=== PATIENT | female | born 1965 | race Caucasian/White ===

== ENCOUNTER 2018-11-15 16:13 | Emergency (ER) | payer MEDICAID ==
[~2018-11-15] VITALS: Ht 160 cm; Wt 68.2 kg
[~2018-11-15 16:13] MED LIST: CHOLESTEROL; GLIP10 PO; MAGOX PO; METF-960 PO; [UNRECOGNIZED DRUG - CODE] MC
[2018-11-15 16:30] LABS: GLUCOSE,POINT OF CARE > 600 MG/DL (70-110)
[2018-11-15 16:52] LABS: BASOPHILS % (AUTO) 0.6 % (0.0-2.0); EOSINOPHILS % (AUTO) 3.3 % (1.0-6.0); LYMPHOCYTES # (AUTO) 2.6 K/uL (1.0-4.8); LYMPHOCYTES % (AUTO) 31.9 % (22.0-44.0); MEAN CORPUSCULAR HEMOGLOBIN 33.7 pg (26.0-34.0); MEAN CORPUSCULAR VOLUME 99 fL (80-100); MONOCYTES # (AUTO) 0.7 K/uL (0.1-1.0); MONOCYTES % (AUTO) 8.9 % (2.0-9.0); NEUTROPHILS # (AUTO) 4.5 K/uL (1.8-7.7); NEUTROPHILS % (AUTO) 55.3 % (40.0-70.0); PLATELET COUNT (AUTO) 125 K/uL (150-450); RED BLOOD CELL COUNT(AUTO) 4.44 MIL/uL (4.00-5.20); RED CELL DISTRIBUTION WIDTH 13.1 % (11.5-14.5)
[2018-11-15 17:14] LABS: ALANINE AMINOTRANSFERASE 27 U/L (12-78); ALBUMIN 4.1 g/dL (3.4-5.0); ALKALINE PHOSPHATASE 227 U/L (46-116); ANION GAP 10 mmol/L (8-16); ASPARTATE AMINOTRANSFERASE 18 U/L (15-37); BILIRUBIN,TOTAL 0.3 mg/dL (0.1-1.0); CALCIUM, TOTAL 9.6 mg/dL (8.8-10.5); CARBON DIOXIDE 25 mmol/L (22-29); CHLORIDE 98 mmol/L (98-107); CREATININE 0.79 mg/dL (0.60-1.30); GLOMERULAR FILTR. RATE CALC > 60 mL/min (>60); LIPASE 379 U/L (73-393); POTASSIUM 4.1 mmol/L (3.5-5.1); SODIUM SERUM 133 mmol/L (136-145); TOTAL PROTEIN, SERUM 7.1 g/dL (6.4-8.2); UREA NITROGEN, BLOOD 14 mg/dL (7-18)
[2018-11-15 17:18] LABS: GLUCOSE,RANDOM 575 mg/dL (70-110)
[2018-11-15 18:33] LABS: APPEARANCE,URINE CLEAR (CLEAR); BILIRUBIN,URINE NEGATIVE (NEGATIVE); GLUCOSE, URINE (UA) >=1000 mg/dL (NEGATIVE); KETONES,URINE 15 mg/dL (NEGATIVE); LEUKOCYTE ESTERASE ,URINE NEGATIVE (NEGATIVE); NITRATE,URINE NEGATIVE (NEGATIVE); OCCULT BLOOD,URINE NEGATIVE (NEGATIVE); PH,URINE 5.5 (5.0-8.0); PROTEIN,URINE NEGATIVE (NEGATIVE); UROBILINOGEN,URINE 0.2 mg/dL (<=1.0)
[2018-11-15 18:37] LABS: BACTERIA,URINE None Seen /HPF (None Seen); RBC,URINE None Seen /HPF (0-2); SQUAMOUS EPITHELIAL CELL,UR Few /LPF (None Seen); WBC,URINE 0-2 /HPF (0-5); YEAST,URINE Few /HPF (None Seen)
[2018-11-15] MEDS ORDERED: SODIUM CHLORIDE 0.9% 2,000 ML IV ONE (18:38)
[2018-11-15] MEDS ORDERED: INSULIN REGULAR, HUMAN 100 UNITS/ML IVP ONE (18:45)
[2018-11-15 20:25] LABS: GLUCOSE,POINT OF CARE 171 MG/DL (70-110)
[2018-11-15 21:50] LABS: ABG A-A DIFF O2 5.5 mmHg (10-20.0); ABG BASE EXCESS -2.8 mmol/L (-2.0-3.0); ABG CARBOXYHEMOGLOBIN 2.7 % (0.0-1.5); ABG HCO3 22.4 mmol/L (22.0-26.0); ABG METHEMOGLOBIN 0.3 % (0.0-1.5); ABG OXYGEN CONTENT 17.5 mL/dL (15.0-23.0); ABG OXYGEN SATURATION 96.8 % (95.0-98.0); ABG OXYHEMOGLOBIN 93.9 % (94.0-100.0); ABG PCO2 38 mmHg (35-45); ABG PH 7.385 (7.35-7.450); ABG TOTAL HEMOGLOBIN 13.2 G/dL (12.0-18.0); PO2, ARTERIAL BG 98.9 mmHg (84.0-92.0); SOURCE, BLOOD GAS ARTERIAL
[2018-11-15 22:00] LABS: GLUCOSE,POINT OF CARE 201 MG/DL (70-110)
[2018-11-15 22:41] LABS: SITE, BLOOD GAS LFT RADIAL
[2018-11-15 23:09] VITALS: BP 110/67
== END 2018-11-15 23:26 | disposition home or self-care (01) ==
LOC: EMS 16:14
DX: E11.65 Type 2 diabetes mellitus with hyperglycemia (principal); F17.210 Nicotine dependence, cigarettes, uncomplicated; Z91.14 Patient's other noncompliance with medication regimen; Z88.5 Allergy status to narcotic agent; Z79.84 Long term (current) use of oral hypoglycemic drugs
CPT/HCPCS: 36415; 80053; 81001; 82009; 82805; 82962; 83690; 83880; 84484; 85025; 96361; 96374; 99283; J1815; J7030

== ENCOUNTER 2020-11-07 18:47 | Emergency (ER) | payer MEDICAID ==
[~2020-11-07] VITALS: Ht 160 cm; Wt 63.6 kg
[~2020-11-07 18:47] MED LIST changes: -CHOLESTEROL; -MAGOX PO
[2020-11-07 18:56] VITALS: BP 106/64
[2020-11-07] MEDS ORDERED: IBUPROFEN 600 MG TABLET PO ONE (19:45)
[2020-11-07] MEDS ORDERED: ValACYclovir HCL 500 MG TABLET PO ONE (19:45)
== END 2020-11-07 20:37 | disposition home or self-care (01) ==
LOC: EMS 18:50
DX: B02.9 Zoster without complications (principal); E11.9 Type 2 diabetes mellitus without complications; F17.210 Nicotine dependence, cigarettes, uncomplicated; Z88.0 Allergy status to penicillin; Z79.84 Long term (current) use of oral hypoglycemic drugs

== ENCOUNTER 2021-06-30 14:03 | Emergency (ER) | payer MEDICAID ==
[~2021-06-30] VITALS: Ht 160 cm; Wt 72.7 kg
[2021-06-30 14:07] VITALS: BP 128/77
== END 2021-06-30 15:18 | disposition left against medical advice (07) ==
LOC: EMS 14:08
DX: T14.90XA Injury, unspecified, initial encounter (principal); Z53.21 Procedure and treatment not carried out due to patient leaving prior to being seen by health care provider; X58.XXXA Exposure to other specified factors, initial encounter

== ENCOUNTER 2021-06-30 18:56 | Emergency (ER) | payer MEDICAID ==
[~2021-06-30] VITALS: Ht 160 cm; Wt 70.5 kg
[2021-06-30] MEDS ORDERED: LIDOCAINE 1% 10 ML VIAL ONE (20:23)
[2021-06-30 20:45] VITALS: BP 117/68
== END 2021-06-30 21:00 | disposition home or self-care (01) ==
LOC: EMS 18:57
DX: L02.512 Cutaneous abscess of left hand (principal); Z88.5 Allergy status to narcotic agent; E11.9 Type 2 diabetes mellitus without complications; Z79.84 Long term (current) use of oral hypoglycemic drugs
CPT/HCPCS: 10060; 99283; J3490

== ENCOUNTER 2021-08-14 18:34 | Emergency (ER) | payer MEDICAID ==
[~2021-08-14] VITALS: Ht 160 cm; Wt 62.5 kg
[2021-08-14 18:41] VITALS: BP 123/75
[2021-08-14] MEDS ORDERED: ACETAMINOPHEN 500 MG TABLET PO ONE (20:00)
[2021-08-14] MEDS ORDERED: BACITRACIN 0.9 GM PACKET OINTMENT TP ONE (20:00)
[2021-08-14] MEDS ORDERED: LIDOCAINE 1% 10 ML VIAL SQ ONE (20:00)
[2021-08-14] MEDS ORDERED: DOXYCYCLINE HYCLATE 100 MG TABLET PO ONE (20:00)
== END 2021-08-14 21:22 | disposition home or self-care (01) ==
LOC: EMS 18:40
DX: L02.414 Cutaneous abscess of left upper limb (principal); M79.89 Other specified soft tissue disorders; E11.9 Type 2 diabetes mellitus without complications; F17.210 Nicotine dependence, cigarettes, uncomplicated; F12.90 Cannabis use, unspecified, uncomplicated; Z88.5 Allergy status to narcotic agent; Z79.84 Long term (current) use of oral hypoglycemic drugs
CPT/HCPCS: 10060; 99283; J3490; 99284

== ENCOUNTER 2021-09-10 20:10 | Emergency (ER) | payer MEDICAID ==
[~2021-09-10] VITALS: Ht 160 cm; Wt 59.1 kg
[~2021-09-10 20:10] MED LIST changes: +METF-1211 PO; -METF-960 PO
[2021-09-10 20:29] LABS: GLUCOSE,POINT OF CARE 196 MG/DL (70-110)
[2021-09-10 20:45] VITALS: BP 119/71
[2021-09-10] MEDS ORDERED: CEPHALEXIN MONOHYDRATE 500 MG CAPSULE PO ONE (21:30)
== END 2021-09-10 21:34 | disposition home or self-care (01) ==
LOC: EMS 20:53
DX: L03.114 Cellulitis of left upper limb (principal); E11.9 Type 2 diabetes mellitus without complications
CPT/HCPCS: 82962; 87070; 87077; 87186; 87205; 99283

== ENCOUNTER 2021-11-17 09:32 | Emergency (ER) | payer MEDICAID ==
[~2021-11-17] VITALS: Ht 160 cm; Wt 62.3 kg
[2021-11-17] MEDS ORDERED: POVIDONE-IODINE 10% 15 ML SOLUTION UD TP ONE (10:00)
[2021-11-17] MEDS ORDERED: HYDROCODONE/ACETAMINOPHEN 5-325 MG TABLET PO ONE (10:00)
[2021-11-17] MEDS ORDERED: BUPIVACAINE HCL/PF 0.25% 10 ML VIAL PERC ONE (10:00)
[2021-11-17 10:01] LABS: GLUCOSE,POINT OF CARE 199 MG/DL (70-110)
[2021-11-17 11:46] VITALS: BP 115/64
[2021-11-17] MEDS ORDERED: CEPH500C3 PO (12:38)
[2021-11-17] MEDS ORDERED: SULF-261 PO (12:38)
== END 2021-11-17 12:46 | disposition home or self-care (01) ==
LOC: EMS 09:34
DX: L03.111 Cellulitis of right axilla (principal); L03.116 Cellulitis of left lower limb; L03.313 Cellulitis of chest wall; E11.9 Type 2 diabetes mellitus without complications; F12.90 Cannabis use, unspecified, uncomplicated; F17.210 Nicotine dependence, cigarettes, uncomplicated; Z88.5 Allergy status to narcotic agent; Z79.84 Long term (current) use of oral hypoglycemic drugs
CPT/HCPCS: 82962; 99283; J3490

== ENCOUNTER 2022-01-12 10:30 | Emergency (ER) | payer MEDICAID ==
[~2022-01-12] VITALS: Ht 160 cm; Wt 59.1 kg
[~2022-01-12 10:30] MED LIST changes: +CEPH500C3 PO; +SULF-261 PO
[2022-01-12] MEDS ORDERED: LIDOCAINE/PF 1% 2 ML VIAL IM ONE (11:45)
[2022-01-12] MEDS ORDERED: CefTRIAXone SODIUM 1 GM/VIAL IM ONE (11:45)
[2022-01-12 13:12] VITALS: BP 145/66
[2022-01-12] MEDS ORDERED: SULF-261 PO (13:41)
[2022-01-12] MEDS ORDERED: CEPH500C3 PO (13:42)
== END 2022-01-12 14:18 | disposition home or self-care (01) ==
LOC: EMS 10:32
DX: L08.9 Local infection of the skin and subcutaneous tissue, unspecified (principal); L03.312 Cellulitis of back [any part except buttock and flank]; E11.9 Type 2 diabetes mellitus without complications; F17.210 Nicotine dependence, cigarettes, uncomplicated; F12.90 Cannabis use, unspecified, uncomplicated; Z88.5 Allergy status to narcotic agent; Z79.84 Long term (current) use of oral hypoglycemic drugs
CPT/HCPCS: 96372; 99283; J0696; J3490

== ENCOUNTER 2022-12-17 12:04 | Emergency (ER) | payer MEDICAID ==
[~2022-12-17] VITALS: Ht 160 cm; Wt 62.3 kg
[~2022-12-17 12:04] MED LIST changes: +CEPH-558 PO; -CEPH500C3 PO; -GLIP10 PO; +GLIP10TA10 PO
[2022-12-17 15:15] VITALS: BP 115/71
== END 2022-12-17 15:57 | disposition home or self-care (01) ==
LOC: EMS 12:09
DX: S20.219A Contusion of unspecified front wall of thorax, initial encounter (principal); F17.210 Nicotine dependence, cigarettes, uncomplicated; F12.90 Cannabis use, unspecified, uncomplicated; R73.03 Prediabetes; Z88.5 Allergy status to narcotic agent; V19.88XA Pedal cyclist (driver) (passenger) injured in other specified transport accidents, initial encounter; Y93.89 Activity, other specified; Y92.89 Other specified places as the place of occurrence of the external cause; Y99.8 Other external cause status
CPT/HCPCS: 71100; 71101; 99284; Z7502

== ENCOUNTER 2025-02-04 18:30 | Inpatient (IN) | payer MEDICAID ==
[~2025-02-04] VITALS: Ht 160 cm; Wt 56.0 kg
[~2025-02-04 18:30] MED LIST changes: -CEPH-558 PO; +DOXY-354 PO; -GLIP10TA10 PO; +INSU3INS3 SQ; -METF-1211 PO; +MIDO5TAB29 PO; -SULF-261 PO; -[UNRECOGNIZED DRUG - CODE] MC
[2025-02-04 19:11] LABS: APPEARANCE,URINE CLEAR (CLEAR); BILIRUBIN,URINE NEGATIVE (NEGATIVE); COLOR,URINE LIGHT YELLOW (YELLOW); GLUCOSE, URINE (UA) >=1000 mg/dL (NEGATIVE); KETONES,URINE NEGATIVE (NEGATIVE); LEUKOCYTE ESTERASE ,URINE SMALL (NEGATIVE); NITRATE,URINE NEGATIVE (NEGATIVE); OCCULT BLOOD,URINE SMALL (NEGATIVE); PROTEIN,URINE TRACE mg/dL (NEGATIVE); UROBILINOGEN,URINE <=1.0 mg/dL (<=1.0)
[2025-02-04 19:18] LABS: BASOPHILS % (AUTO) 0.1 % (0.0-2.0); EOSINOPHILS % (AUTO) 1.5 % (1.0-6.0); HEMATOCRIT 44.2 % (36-46); HEMOGLOBIN 14.8 g/dL (12.0-16.0); LYMPHOCYTES # (AUTO) 1.8 K/uL (1.0-4.8); LYMPHOCYTES % (AUTO) 11.4 % (22.0-44.0); MEAN CORPUSCULAR HGB CONC 33.5 G/dL (31.0-37.0); MEAN CORPUSCULAR VOLUME 99 fL (80-100); MONOCYTES # (AUTO) 1.3 K/uL (0.1-1.0); MONOCYTES % (AUTO) 8.1 % (2.0-9.0); NEUTROPHILS # (AUTO) 12.6 K/uL (1.8-7.7); NEUTROPHILS % (AUTO) 78.9 % (40.0-70.0); PLATELET COUNT (AUTO) 218 K/uL (150-450); RED BLOOD CELL COUNT(AUTO) 4.48 MIL/uL (4.00-5.20); RED CELL DISTRIBUTION WIDTH 13.7 % (11.5-14.5)
[2025-02-04 19:27] LABS: BACTERIA,URINE Few /HPF (None Seen); SQUAMOUS EPITHELIAL CELL,UR Few /LPF (None Seen)
[2025-02-04 19:27] LABS: ANION GAP 6 mmol/L (8-16); CALCIUM, TOTAL 9.4 mg/dL (8.8-10.5); CARBON DIOXIDE 32 mmol/L (22-29); CHLORIDE 96 mmol/L (98-107); GLOMERULAR FILTR. RATE CALC > 60 mL/min (>60); LIPASE 46 U/L (16-77); POTASSIUM 4.1 mmol/L (3.5-5.1); SODIUM SERUM 134 mmol/L (136-145); UREA NITROGEN, BLOOD 20 mg/dL (7-18)
[2025-02-04 19:30] LABS: ALBUMIN 2.6 g/dL (3.4-5.0); BILIRUBIN,DIRECT 0.2 mg/dL (0.00-0.20); BILIRUBIN,TOTAL 0.5 mg/dL (0.1-1.0); GLUCOSE,RANDOM 454 mg/dL (70-110); TOTAL PROTEIN, SERUM 8.2 g/dL (6.4-8.2)
[2025-02-04] MEDS: ACETAMINOPHEN 500 MG TABLET PO ONE (19:34)
[2025-02-04] MEDS: SODIUM CHLORIDE 0.9% 1,000 ML IV ONE (19:34)
[2025-02-04] MEDS: ONDANSETRON HCL 4 MG/2 ML VIAL IVP ONE (19:34)
[2025-02-04] MEDS ORDERED: 0.9% SODIUM CHLORIDE 10 ML SYRINGE IVP ONE (19:41)
[2025-02-04] MEDS ORDERED: IOHEXOL 350 MG/ML 100 ML VIAL ONE (19:41)
[2025-02-04] MEDS ORDERED: SODIUM CHLORIDE 0.9% 100 ML ONE (19:41)
[2025-02-04 20:09] LABS: LACTIC ACID 1.6 mmol/L (0.4-2.0)
[2025-02-04] MEDS: INSULIN REGULAR, HUMAN 100 UNITS/ML IVP ONE (20:20)
[2025-02-04] MEDS: CefTRIAXone 1 GM/DEXTROSE 50 ML IV ONE (20:21)
[2025-02-04] MEDS ORDERED: ONDANSETRON HCL 4 MG/2 ML VIAL IVP PRN (21:00)
[2025-02-04] MEDS: DOCUSATE SODIUM 100 MG CAPSULE PO SCH (21:00)
[2025-02-04] MEDS ORDERED: ACETAMINOPHEN 325 MG TABLET PO PRN (21:00)
[2025-02-04] MEDS ORDERED: DEXTROSE 50%-WATER 25 GM/50 ML SYRINGE IVP PRN (21:00)
[2025-02-04] MEDS: PIPERACILLIN/TAZO 3.375 GM/D5W 50 ML IV ONE (21:07)
[2025-02-04] MEDS: VANCOMYCIN 1.25 GM/WATER(PEG) 250 ML IV ONE (21:27)
[2025-02-04] MEDS: INSULIN GLARGINE,HUM.REC.ANLOG 100 UNITS/ML SQ SCH (21:27)
[2025-02-04 22:01] VITALS: BP 116/71; PULSE 98; RESP 20; TEMP 98.2; O2SAT 95
[2025-02-04] MEDS: SODIUM CHLORIDE 0.9% 500 ML IV ONE (23:05)
[2025-02-04] MEDS: HEPARIN SODIUM,PORCINE 5,000 UNITS/ML VIAL SQ SCH (23:05)
[2025-02-05] MEDS: PIPERACILLIN/TAZO 3.375 GM/D5W 50 ML IV SCH (03:45)
[2025-02-05 03:47] VITALS: BP 100/59; PULSE 95; RESP 18; TEMP 99.1; O2SAT 99
[2025-02-05] MEDS: INSULIN LISPRO 100 UNITS/ML SQ PRN (05:36)
[2025-02-05 06:33] LABS: BASOPHILS % (AUTO) 0.1 % (0.0-2.0); HEMATOCRIT 37.8 % (36-46); HEMOGLOBIN 12.9 g/dL (12.0-16.0); LYMPHOCYTES # (AUTO) 1.9 K/uL (1.0-4.8); LYMPHOCYTES % (AUTO) 15.2 % (22.0-44.0); MEAN CORPUSCULAR HEMOGLOBIN 33.2 pg (26.0-34.0); MEAN CORPUSCULAR HGB CONC 34.1 G/dL (31.0-37.0); MEAN CORPUSCULAR VOLUME 97 fL (80-100); MONOCYTES % (AUTO) 7.5 % (2.0-9.0); NEUTROPHILS # (AUTO) 9.5 K/uL (1.8-7.7); NEUTROPHILS % (AUTO) 75.2 % (40.0-70.0); PLATELET COUNT (AUTO) 188 K/uL (150-450); RED BLOOD CELL COUNT(AUTO) 3.88 MIL/uL (4.00-5.20); RED CELL DISTRIBUTION WIDTH 13.5 % (11.5-14.5); WHITE BLOOD COUNT (AUTO) 12.7 K/uL (4.5-11.0)
[2025-02-05 07:00] LABS: GLUCOMETER DEV NAME(LOC) 6N.2B; GLUCOSE,POINT OF CARE 211 MG/DL (70-110)
[2025-02-05 07:29] LABS: ANION GAP 6 mmol/L (8-16); CALCIUM, TOTAL 8.4 mg/dL (8.8-10.5); CARBON DIOXIDE 29 mmol/L (22-29); CHLORIDE 101 mmol/L (98-107); CREATININE 0.67 mg/dL (0.60-1.30); GLOMERULAR FILTR. RATE CALC > 60 mL/min (>60); GLUCOSE,RANDOM 204 mg/dL (70-110); POTASSIUM 3.8 mmol/L (3.5-5.1); SODIUM SERUM 136 mmol/L (136-145); UREA NITROGEN, BLOOD 10 mg/dL (7-18)
[2025-02-05 08:01] VITALS: BP 103/64; PULSE 93; RESP 20; TEMP 97.9; O2SAT 99
[2025-02-05] MEDS: VANCOMYCIN 750 MG/WATER(PEG) 150 ML IV SCH (12:00)
[2025-02-05 16:20] VITALS: BP 102/64; PULSE 97; RESP 20; TEMP 98.2; O2SAT 100
[2025-02-05 17:31] LABS: GLUCOMETER DEV NAME(LOC) 6N.2B; GLUCOSE,POINT OF CARE 120 MG/DL (70-110)
[2025-02-05 19:51] LABS: GLUCOMETER DEV NAME(LOC) 6S.2; GLUCOSE,POINT OF CARE 148 MG/DL (70-110)
[2025-02-05 20:29] VITALS: BP 100/60; PULSE 98; RESP 18; TEMP 98.4; O2SAT 98
[2025-02-05 23:26] LABS: GLUCOMETER DEV NAME(LOC) 6S.2; GLUCOSE,POINT OF CARE 238 MG/DL (70-110)
[2025-02-05] MEDS: *CLINICAL-LEVOFLOXACIN IVPB DOSING CLINICAL ONE (23:32)
[2025-02-06] MEDS: LEVOFLOXACIN 500 MG/D5% WATER 100 ML IV SCH (00:31)
[2025-02-06 04:28] VITALS: BP 98/56; PULSE 90; RESP 18; TEMP 99; O2SAT 98
[2025-02-06 07:33] LABS: ANION GAP 5 mmol/L (8-16); CALCIUM, TOTAL 8.3 mg/dL (8.8-10.5); CARBON DIOXIDE 30 mmol/L (22-29); CHLORIDE 98 mmol/L (98-107); CREATININE 0.54 mg/dL (0.60-1.30); GLOMERULAR FILTR. RATE CALC > 60 mL/min (>60); GLUCOSE,RANDOM 162 mg/dL (70-110); POTASSIUM 3.1 mmol/L (3.5-5.1); SODIUM SERUM 133 mmol/L (136-145); UREA NITROGEN, BLOOD 7 mg/dL (7-18); VANCOMYCIN,RANDOM 3.3 mcg/mL (25.0-50.0)
[2025-02-06 08:45] VITALS: BP 107/67; PULSE 89; RESP 18; TEMP 99; O2SAT 97
[2025-02-06] MEDS ORDERED: POTASSIUM CHL 10 MEQ/WATER 50 ML IV PRN (10:45)
[2025-02-06] MEDS: POTASSIUM CHLORIDE 20 MEQ ER TABLET PO PRN (11:53)
[2025-02-06 16:21] VITALS: BP 95/77; PULSE 91; RESP 18; TEMP 98.4; O2SAT 100
[2025-02-06 19:01] LABS: GLUCOMETER DEV NAME(LOC) 6S.2; GLUCOSE,POINT OF CARE 412 MG/DL (70-110)
[2025-02-06 19:01] LABS: GLUCOMETER DEV NAME(LOC) 6S.2; GLUCOSE,POINT OF CARE 240 MG/DL (70-110)
[2025-02-06 19:01] LABS: GLUCOMETER DEV NAME(LOC) 6S.2; GLUCOSE,POINT OF CARE 166 MG/DL (70-110)
[2025-02-06 20:03] VITALS: BP 120/71; PULSE 95; RESP 18; TEMP 98.8; O2SAT 98
[2025-02-06] MEDS: LEVOFLOXACIN 750 MG/D5% WATER 150 ML IV SCH (21:56)
[2025-02-06 22:36] LABS: GLUCOMETER DEV NAME(LOC) 6N.2B; GLUCOSE,POINT OF CARE 106 MG/DL (70-110)
[2025-02-06 22:36] LABS: GLUCOMETER DEV NAME(LOC) 6N.2B; GLUCOSE,POINT OF CARE 319 MG/DL (70-110)
[2025-02-07 05:10] VITALS: BP 104/64; PULSE 83; RESP 18; TEMP 98.4; O2SAT 96
[2025-02-07 07:51] VITALS: BP 108/71; PULSE 89; RESP 18; TEMP 99; O2SAT 100
[2025-02-07 10:05] LABS: GLUCOMETER DEV NAME(LOC) 6S.2; GLUCOSE,POINT OF CARE 233 MG/DL (70-110)
[2025-02-07 16:15] VITALS: BP 102/69; PULSE 90; RESP 20; TEMP 98.1; O2SAT 98
[2025-02-07 17:40] LABS: GLUCOMETER DEV NAME(LOC) 6N.2B; GLUCOSE,POINT OF CARE 278 MG/DL (70-110)
[2025-02-07 19:42] VITALS: BP 106/66; PULSE 87; RESP 18; TEMP 98.2; O2SAT 99
[2025-02-08 03:36] LABS: GLUCOMETER DEV NAME(LOC) 6S.2; GLUCOSE,POINT OF CARE 287 MG/DL (70-110)
[2025-02-08 05:04] VITALS: BP 110/66; PULSE 89; RESP 18; TEMP 98.2
[2025-02-08 08:38] VITALS: BP 102/68; PULSE 88; RESP 20; TEMP 98.1; O2SAT 98
[2025-02-08] MEDS ORDERED: SODIUM CHLORIDE 0.9% 500 ML IV ONE (09:14)
[2025-02-08 15:51] VITALS: BP 95/69; PULSE 87; RESP 20; TEMP 98.4; O2SAT 99
[2025-02-08] MEDS: *CLINICAL-MEROPENEM DOSING CLINICAL ONE (18:06)
[2025-02-08] MEDS: INSULIN LISPRO 100 UNITS/ML SQ ONE (18:16)
[2025-02-08 19:53] VITALS: BP 103/68; PULSE 84; RESP 20; TEMP 98.1; O2SAT 100
[2025-02-08] MEDS: MEROPENEM 1 GM in SODIUM CHLORIDE 0.9% 50 ML IV SCH (20:14)
[2025-02-08 20:35] LABS: GLUCOMETER DEV NAME(LOC) 6S.1D; GLUCOSE,POINT OF CARE 284 MG/DL (70-110)
[2025-02-08] MEDS: INSULIN GLARGINE,HUM.REC.ANLOG 100 UNITS/ML SQ SCH (20:37)
[2025-02-09 02:05] LABS: GLUCOMETER DEV NAME(LOC) 6S.2; GLUCOSE,POINT OF CARE 288 MG/DL (70-110)
[2025-02-09 02:05] LABS: GLUCOMETER DEV NAME(LOC) 6S.2; GLUCOSE,POINT OF CARE 403 MG/DL (70-110)
[2025-02-09 02:10] LABS: GLUCOMETER DEV NAME(LOC) 6N.2B; GLUCOSE,POINT OF CARE 300 MG/DL (70-110)
[2025-02-09 02:10] LABS: GLUCOMETER DEV NAME(LOC) 6N.2B; GLUCOSE,POINT OF CARE 301 MG/DL (70-110)
[2025-02-09 04:00] VITALS: BP 105/65; PULSE 89; RESP 18; TEMP 98; O2SAT 98
[2025-02-09 07:11] LABS: BASOPHILS % (AUTO) 0.5 % (0.0-2.0); EOSINOPHILS % (AUTO) 6.1 % (1.0-6.0); HEMOGLOBIN 12.6 g/dL (12.0-16.0); LYMPHOCYTES % (AUTO) 20.3 % (22.0-44.0); MEAN CORPUSCULAR HEMOGLOBIN 33.7 pg (26.0-34.0); MEAN CORPUSCULAR HGB CONC 33.9 G/dL (31.0-37.0); MEAN CORPUSCULAR VOLUME 99 fL (80-100); MONOCYTES # (AUTO) 0.5 K/uL (0.1-1.0); MONOCYTES % (AUTO) 5.4 % (2.0-9.0); NEUTROPHILS # (AUTO) 6.8 K/uL (1.8-7.7); NEUTROPHILS % (AUTO) 67.7 % (40.0-70.0); PLATELET COUNT (AUTO) 258 K/uL (150-450); RED BLOOD CELL COUNT(AUTO) 3.73 MIL/uL (4.00-5.20); RED CELL DISTRIBUTION WIDTH 13.1 % (11.5-14.5); WHITE BLOOD COUNT (AUTO) 10.1 K/uL (4.5-11.0)
[2025-02-09 07:36] LABS: ANION GAP 6 mmol/L (8-16); CARBON DIOXIDE 29 mmol/L (22-29); CHLORIDE 99 mmol/L (98-107); CREATININE 0.82 mg/dL (0.60-1.30); GLOMERULAR FILTR. RATE CALC > 60 mL/min (>60); GLUCOSE,RANDOM 398 mg/dL (70-110); SODIUM SERUM 134 mmol/L (136-145); UREA NITROGEN, BLOOD 12 mg/dL (7-18)
[2025-02-09 08:21] VITALS: BP 100/71; PULSE 87; RESP 20; TEMP 98.2; O2SAT 100
[2025-02-09 16:29] VITALS: BP 103/69; PULSE 93; RESP 20; TEMP 98.1; O2SAT 100
[2025-02-09 19:01] LABS: GLUCOMETER DEV NAME(LOC) 6N.2B; GLUCOSE,POINT OF CARE 385 MG/DL (70-110)
[2025-02-09 19:05] LABS: GLUCOMETER DEV NAME(LOC) 6S.1D; GLUCOSE,POINT OF CARE 241 MG/DL (70-110)
[2025-02-09 19:05] LABS: GLUCOMETER DEV NAME(LOC) 6S.1D; GLUCOSE,POINT OF CARE 353 MG/DL (70-110)
[2025-02-09 19:44] VITALS: BP 105/69; PULSE 93; RESP 18; TEMP 98.2; O2SAT 98
[2025-02-10 05:13] VITALS: BP 112/84; PULSE 82; RESP 18; TEMP 98; O2SAT 98
[2025-02-10 05:41] LABS: GLUCOMETER DEV NAME(LOC) 6S.2; GLUCOSE,POINT OF CARE 195 MG/DL (70-110)
[2025-02-10 07:47] VITALS: BP 114/68; PULSE 90; RESP 19; TEMP 98.2; O2SAT 98
[2025-02-10 08:41] LABS: GLUCOMETER DEV NAME(LOC) 6N.2B; GLUCOSE,POINT OF CARE 145 MG/DL (70-110)
[2025-02-10 17:35] LABS: GLUCOMETER DEV NAME(LOC) 6S.1D; GLUCOSE,POINT OF CARE 279 MG/DL (70-110)
[2025-02-10 19:21] LABS: GLUCOMETER DEV NAME(LOC) 5S.1D; GLUCOSE,POINT OF CARE 235 MG/DL (70-110)
[2025-02-10 19:55] LABS: GLUCOMETER DEV NAME(LOC) 6N.2B; GLUCOSE,POINT OF CARE 290 MG/DL (70-110)
[2025-02-10 20:31] VITALS: BP 114/74; PULSE 89; RESP 19; TEMP 98.1; O2SAT 99
[2025-02-10 21:31] LABS: GLUCOMETER DEV NAME(LOC) 5S.1D; GLUCOSE,POINT OF CARE 185 MG/DL (70-110)
[2025-02-11 04:58] VITALS: BP 120/76; PULSE 70; RESP 19; TEMP 98.4; O2SAT 98
[2025-02-11 07:00] LABS: GLUCOMETER DEV NAME(LOC) 5S.1D; GLUCOSE,POINT OF CARE 171 MG/DL (70-110)
[2025-02-11 08:00] VITALS: BP 100/72; PULSE 71; RESP 20; TEMP 97.7; O2SAT 99
[2025-02-11] MEDS ORDERED: SODIUM CHLORIDE 0.9% 500 ML IV ONE (12:18)
[2025-02-11 16:13] VITALS: BP 106/88; PULSE 95; RESP 16; TEMP 98.1; O2SAT 97
[2025-02-11 17:40] LABS: GLUCOMETER DEV NAME(LOC) 5S.1D; GLUCOSE,POINT OF CARE 213 MG/DL (70-110)
[2025-02-11 18:21] LABS: GLUCOMETER DEV NAME(LOC) 6N.1B; GLUCOSE,POINT OF CARE 296 MG/DL (70-110)
[2025-02-11 19:55] VITALS: BP 108/65; PULSE 99; RESP 18; TEMP 98.6; O2SAT 99
[2025-02-12 04:35] VITALS: BP 115/67; PULSE 95; RESP 18; TEMP 97.8; O2SAT 98
[2025-02-12 06:31] LABS: GLUCOMETER DEV NAME(LOC) 5S.1D; GLUCOSE,POINT OF CARE 191 MG/DL (70-110)
[2025-02-12 08:00] VITALS: BP 137/81; PULSE 87; RESP 18; TEMP 98.6; O2SAT 98
[2025-02-12 11:21] LABS: GLUCOMETER DEV NAME(LOC) 6N.1B; GLUCOSE,POINT OF CARE 211 MG/DL (70-110)
[2025-02-12 15:21] VITALS: BP 141/70; PULSE 82; RESP 19; TEMP 97.9; O2SAT 99
[2025-02-12 21:15] VITALS: BP 111/66; PULSE 98; RESP 18; TEMP 98.6; O2SAT 96
[2025-02-13 04:15] VITALS: BP 116/72; PULSE 95; RESP 18; TEMP 98.2; O2SAT 98
[2025-02-13 07:40] LABS: GLUCOMETER DEV NAME(LOC) 4E.2; GLUCOSE,POINT OF CARE 348 MG/DL (70-110)
[2025-02-13 08:00] VITALS: BP 115/66; PULSE 91; RESP 18; TEMP 98.3; O2SAT 97
[2025-02-13 08:24] LABS: BASOPHILS % (AUTO) 0.9 % (0.0-2.0); EOSINOPHILS % (AUTO) 3.5 % (1.0-6.0); HEMATOCRIT 37.1 % (36-46); HEMOGLOBIN 12.1 g/dL (12.0-16.0); LYMPHOCYTES # (AUTO) 3.1 K/uL (1.0-4.8); LYMPHOCYTES % (AUTO) 30.4 % (22.0-44.0); MEAN CORPUSCULAR HEMOGLOBIN 32.6 pg (26.0-34.0); MEAN CORPUSCULAR HGB CONC 32.8 G/dL (31.0-37.0); MEAN CORPUSCULAR VOLUME 100 fL (80-100); MONOCYTES # (AUTO) 0.7 K/uL (0.1-1.0); NEUTROPHILS % (AUTO) 58.2 % (40.0-70.0); PLATELET COUNT (AUTO) 351 K/uL (150-450); RED BLOOD CELL COUNT(AUTO) 3.73 MIL/uL (4.00-5.20); RED CELL DISTRIBUTION WIDTH 13.6 % (11.5-14.5); WHITE BLOOD COUNT (AUTO) 10.2 K/uL (4.5-11.0)
[2025-02-13 08:34] LABS: ANION GAP 8 mmol/L (8-16); CALCIUM, TOTAL 9.4 mg/dL (8.8-10.5); CARBON DIOXIDE 32 mmol/L (22-29); CHLORIDE 103 mmol/L (98-107); CREATININE 0.54 mg/dL (0.60-1.30); GLOMERULAR FILTR. RATE CALC > 60 mL/min (>60); GLUCOSE,RANDOM 68 mg/dL (70-110); SODIUM SERUM 143 mmol/L (136-145); UREA NITROGEN, BLOOD 19 mg/dL (7-18)
[2025-02-13 11:01] LABS: GLUCOMETER DEV NAME(LOC) 6N.1B; GLUCOSE,POINT OF CARE 263 MG/DL (70-110)
[2025-02-13 18:21] LABS: GLUCOMETER DEV NAME(LOC) 5S.1D; GLUCOSE,POINT OF CARE 294 MG/DL (70-110)
[2025-02-13 18:21] LABS: GLUCOMETER DEV NAME(LOC) 5S.1D; GLUCOSE,POINT OF CARE 200 MG/DL (70-110)
[2025-02-13 18:30] LABS: GLUCOMETER DEV NAME(LOC) 4E.2; GLUCOSE,POINT OF CARE 231 MG/DL (70-110)
[2025-02-13 18:30] LABS: GLUCOMETER DEV NAME(LOC) 4E.2; GLUCOSE,POINT OF CARE 162 MG/DL (70-110)
[2025-02-13 21:32] VITALS: BP 120/70; PULSE 92; RESP 19; TEMP 97.9; O2SAT 98
[2025-02-14 03:26] LABS: GLUCOMETER DEV NAME(LOC) 6N.1B; GLUCOSE,POINT OF CARE 279 MG/DL (70-110)
[2025-02-14 04:56] VITALS: BP 96/67; PULSE 86; RESP 18; TEMP 98.2; O2SAT 99
[2025-02-14 08:00] VITALS: BP 114/71; PULSE 84; RESP 18; TEMP 98.1; O2SAT 99
[2025-02-14 09:11] LABS: GLUCOMETER DEV NAME(LOC) 4E.2; GLUCOSE,POINT OF CARE 212 MG/DL (70-110)
[2025-02-14] MEDS ORDERED: INSLAN SQ (11:02)
[2025-02-15 00:31] LABS: GLUCOMETER DEV NAME(LOC) 5S.1D; GLUCOSE,POINT OF CARE 284 MG/DL (70-110)
== END 2025-02-14 12:30 | disposition home or self-care (01) | DRG 463 ==
LOC: EMS 18:30 → EDH 20:54 → 6S 21:49 → 4E 02-10 14:23
PROVIDERS: ADMIT Internal Medicine; ATTEND Internal Medicine
DX: N10 Acute pyelonephritis (principal); E44.0 Moderate protein-calorie malnutrition; R78.81 Bacteremia; E11.65 Type 2 diabetes mellitus with hyperglycemia; E87.6 Hypokalemia; L03.317 Cellulitis of buttock; B96.20 Unspecified Escherichia coli [E. coli] as the cause of diseases classified elsewhere; R74.8 Abnormal levels of other serum enzymes; Z79.4 Long term (current) use of insulin; Z88.5 Allergy status to narcotic agent; Z79.899 Other long term (current) drug therapy; Z91.199 Patient's noncompliance with other medical treatment and regimen due to unspecified reason; Z87.891 Personal history of nicotine dependence
CPT/HCPCS: 74177; 80048; 80076; 80202; 81001; 82962; 83605; 83690; 83735; 84132; 85025; 87040; 87077; 87086; 87186; 87205; 99285; G0378; J0696; J1644; J1815; J1956; J2185; J2405; J2543; J7030; J7040; J7050